=== PATIENT | male | born 1995 | race Caucasian/White ===

== ENCOUNTER 2025-08-30 19:41 | Emergency (ER) | payer OTHER ==
[~2025-08-30] VITALS: Ht 170.2 cm; Wt 56.8 kg
[2025-08-30 19:57] VITALS: TEMP 98.4
[2025-08-30 20:46] LABS: PLATELET COUNT (AUTO) 442 K/uL (150-450); RED BLOOD CELL COUNT(AUTO) 4.66 MIL/uL (4.50-5.90); RED CELL DISTRIBUTION WIDTH 15.1 % (11.5-14.5); WHITE BLOOD COUNT (AUTO) 8.1 K/uL (4.5-11.0)
[2025-08-30 20:50] LABS: CALCIUM, TOTAL 10.2 mg/dL (8.8-10.5); CREATININE 0.56 mg/dL (0.60-1.30); GLOMERULAR FILTR. RATE CALC > 60 mL/min (>60); GLUCOSE,RANDOM 92 mg/dL (70-110); SODIUM SERUM 138 mmol/L (136-145); UREA NITROGEN, BLOOD 17 mg/dL (7-18)
[2025-08-30 21:01] LABS: TROPONIN I-HIGH SENSITIVITY Less Than 4 ng/L (<76)
[2025-08-30] MEDS: IBUPROFEN 400 MG TABLET PO ONE (22:31)
[2025-08-30] MEDS: ACETAMINOPHEN 500 MG TABLET PO ONE (22:34)
[2025-08-30 23:30] VITALS: BP 136/71; PULSE 87; RESP 18; O2SAT 97
== END 2025-08-31 01:08 ==
LOC: EMS 19:41
DX: S22.42XA Multiple fractures of ribs, left side, initial encounter for closed fracture (principal); F12.90 Cannabis use, unspecified, uncomplicated; Z02.89 Encounter for other administrative examinations; Y09 Assault by unspecified means; Y93.89 Activity, other specified; Y92.89 Other specified places as the place of occurrence of the external cause; Y99.8 Other external cause status
CPT/HCPCS: 71045; 71101; 80048; 84484; 85025; 93005; 99285; 36415-L1; 36415-TC